=== PATIENT | female | born 1970 | race Caucasian/White ===

== ENCOUNTER 2021-06-03 07:30 | Inpatient (IN) ==
[2021-05-29 12:27] LABS: Basophils # 0.1 10*3/uL (0.0-0.2); Basophils % 0.9 % (0.0-0.8); Eosinophils # 0.3 10*3/uL (0.0-0.87); Eosinophils % 5.1 % (0.00-10.9); Hematocrit 40.7 VOL% (35.7-47.0); Hemoglobin 12.5 GM/DL (12.0-16.0); Immature Granulocytes % 0.4 %; Immature Granulocytes Absolute 0.02 #; Lymphocytes # 1.6 10*3/uL (1.4-4.0); Mean Corpuscular HGB Conc 30.7 GM/DL (32-36); Mean Corpuscular Volume 90.2 FL (87-102); Mean Platelet Volume 11.7 FL (9.6-12.0); Neutrophils % 52.6 % (38.7-73.9); Platelet Count 262 T/CUMM (130-400); Red Blood Count 4.51 MC/CUMM (3.8-5.5); Red Cell Distribution Width 16.2 % (9.3-17.3); White Blood Count 5.5 T/CUMM (4-12)
[2021-05-29 12:58] LABS: Calcium 9.2 MG/DL (8.5-10.1); Osmolality,Calculated 280.4 MOS/KG (273-304); Potassium 4.1 MMOL/L (3.5-5.1)
[2021-06-03] MEDS ORDERED: FAMOTIDINE 20 MG TABLET PO ONE (08:06)
[2021-06-03] MEDS ORDERED: ALBUTEROL 2.5 MG/3 ML NEB RESP TX ONE (08:06)
[2021-06-03] MEDS ORDERED: GABAPENTIN 400 MG CAPSULE PO ONE (08:06)
[2021-06-03] MEDS ORDERED: ACETAMINOPHEN 500 MG TABLET PO ONE (08:06)
[2021-06-03] MEDS ORDERED: DIAZEPAM 5 MG TABLET PO ONE (08:06)
[2021-06-03] MEDS ORDERED: LACTATED RINGERS 1,000 ML IV SCH (08:30)
[2021-06-03] MEDS ORDERED: propofoL 200 MG/20 ML VIAL IV ONE (13:30)
[2021-06-03] MEDS ORDERED: LIDOCAINE 2% 5 ML VIAL ONE (13:30)
[2021-06-03] MEDS ORDERED: MIDAZOLAM 2 MG/2 ML VIAL ONE (13:30)
[2021-06-03] MEDS ORDERED: fentaNYL 100 MCG/2 ML VIAL ONE (13:30)
[2021-06-03] MEDS ORDERED: SUCCINYLCHOLINE 200 MG/10 ML VIAL ONE (13:30)
[2021-06-03] MEDS ORDERED: ROCURONIUM 50 MG/5 ML VIAL IV ONE (13:30)
[2021-06-03] MEDS ORDERED: HYDROmorphone 2 MG/1 ML VIAL ONE ×2 (14:13→19:17)
[2021-06-03] MEDS ORDERED: BUPIVACAINE MPF 0.25% 30 ML VIAL ONE (16:55)
[2021-06-03] MEDS ORDERED: LIDOCAINE 1%/EPI INJ 20 ML VIAL ONE (16:55)
[2021-06-03] MEDS ORDERED: ePHEDrine 50 MG/ML VIAL ONE (17:19)
[2021-06-03] MEDS ORDERED: LACTATED RINGERS 1,000 ML IV ONE (17:39)
[2021-06-03] MEDS ORDERED: ACETAMINOPHEN INJ 1,000 MG/100 ML VIAL IV ONE (17:48)
[2021-06-03] MEDS ORDERED: ONDANSETRON 4 MG/2 ML VIAL IV PRN ×3 (17:59→19:37)
[2021-06-03] MEDS ORDERED: HYDROmorphone 2 MG/1 ML VIAL IV PRN ×3 (17:59→19:36)
[2021-06-03] MEDS ORDERED: ONDANSETRON 4 MG/2 ML VIAL ONE (18:27)
[2021-06-03] MEDS ORDERED: NEOSTIGMINE 10 MG/10 ML VIAL ONE (18:29)
[2021-06-03] MEDS ORDERED: GLYCOPYRROLATE 0.4 MG/2 ML VIAL ONE (18:29)
[2021-06-03] MEDS ORDERED: TISSUE ADHESIVE 1 EACH APPLICATOR TOP ONE (18:45)
[2021-06-03] MEDS ORDERED: SEVOFLURANE 1 UNIT/15 MINUTE INH ONE (18:50)
[2021-06-03] MEDS ORDERED: ETANERCEPT 50 MG/ML SUBCUT SCH (19:28)
[2021-06-03] MEDS ORDERED: PROMETHAZINE 25 MG/1 ML VIAL IM PRN (19:28)
[2021-06-03 20:08] LABS: Hematocrit 39.7 VOL% (35.7-47.0); Hemoglobin 12.2 GM/DL (12.0-16.0); Mean Corpuscular HGB Conc 30.7 GM/DL (32-36); Mean Corpuscular Volume 90.8 FL (87-102); Red Blood Count 4.37 MC/CUMM (3.8-5.5); Red Cell Distribution Width 16.3 % (9.3-17.3); White Blood Count 9.4 T/CUMM (4-12)
[2021-06-03 20:09] LABS: Basophils % 0.4 % (0.0-0.8); Eosinophils # 0.1 10*3/uL (0.0-0.87); Eosinophils % 0.5 % (0.00-10.9); Immature Granulocytes % 0.4 %; Immature Granulocytes Absolute 0.04 #; Lymphocytes # 1.4 10*3/uL (1.4-4.0); Lymphocytes % 15.3 % (21.3-54.2); Mean Platelet Volume 10.9 FL (9.6-12.0); Monocytes % 7.3 % (1.7-12.7); Neutrophils % 76.1 % (38.7-73.9); Platelet Count 237 T/CUMM (130-400)
[2021-06-03 20:20] LABS: Calcium 8.8 MG/DL (8.5-10.1); Osmolality,Calculated 273.8 MOS/KG (273-304); Potassium 3.7 MMOL/L (3.5-5.1)
[2021-06-03] MEDS ORDERED: SIMVASTATIN 40 MG TABLET PO SCH (21:00)
[2021-06-03] MEDS: LACTATED RINGERS 1,000 ML IV SCH (21:18)
[2021-06-03] MEDS: DULoxetine 30 MG CAPSULE PO SCH (21:23)
[2021-06-03] MEDS: PREGABALIN 100 MG CAPSULE PO SCH (21:23)
[2021-06-03] MEDS: GABAPENTIN 300 MG CAPSULE PO SCH (21:23)
[2021-06-03] MEDS ORDERED: NALOXONE 0.4 MG/ML VIAL ONE (23:40)
[2021-06-03] MEDS ORDERED: NALOXONE 0.4 MG/ML VIAL IV ONE (23:53)
[2021-06-03] MEDS: KETOROLAC 15 MG/1 ML VIAL IV SCH (23:55)
[2021-06-04] MEDS ORDERED: ALBUTEROL 2.5 MG/3 ML NEB RESP TX ONE (00:21)
[2021-06-04] MEDS: ALBUTEROL 2.5 MG/3 ML NEB RESP TX SCH ×3 (00:35→11:00)
[2021-06-04] MEDS: KETOROLAC 15 MG/1 ML VIAL IV SCH ×3 (02:20→14:41)
[2021-06-04] MEDS: LACTATED RINGERS 1,000 ML IV SCH ×2 (05:49→14:42)
[2021-06-04 07:06] LABS: Basophils % 0.3 % (0.0-0.8); Eosinophils % 0.3 % (0.00-10.9); Hematocrit 41.7 VOL% (35.7-47.0); Hemoglobin 12.7 GM/DL (12.0-16.0); Immature Granulocytes % 0.2 %; Immature Granulocytes Absolute 0.02 #; Lymphocytes # 0.8 10*3/uL (1.4-4.0); Lymphocytes % 8.1 % (21.3-54.2); Mean Corpuscular HGB Conc 30.5 GM/DL (32-36); Mean Corpuscular Volume 91.4 FL (87-102); Mean Platelet Volume 11.2 FL (9.6-12.0); Monocytes % 6.7 % (1.7-12.7); Neutrophils % 84.4 % (38.7-73.9); Platelet Count 229 T/CUMM (130-400); Red Blood Count 4.56 MC/CUMM (3.8-5.5); Red Cell Distribution Width 16.6 % (9.3-17.3); White Blood Count 9.7 T/CUMM (4-12)
[2021-06-04 07:23] LABS: Calcium 8.7 MG/DL (8.5-10.1); Osmolality,Calculated 274.8 MOS/KG (273-304); Potassium 4.3 MMOL/L (3.5-5.1)
[2021-06-04] MEDS ORDERED: INSULIN LISPRO 100 UNIT/ML SUBCUT PRN (07:31)
[2021-06-04] MEDS ORDERED: Fluticasone-Umeclidin-Vilanter [Trelegy Ellipta] 100-62.5-25 mcg INH SCH (09:00)
[2021-06-04] MEDS ORDERED: ZINC GLUCONATE 50 MG TABLET PO SCH (09:00)
[2021-06-04] MEDS ORDERED: MONTELUKAST 10 MG TABLET PO SCH (09:00)
[2021-06-04] MEDS ORDERED: ASPIRIN EC 81 MG TABLET PO SCH (09:00)
[2021-06-04] MEDS ORDERED: PANTOPRAZOLE 40 MG VIAL IV SCH (09:00)
[2021-06-04] MEDS ORDERED: FOLIC ACID 1 MG TABLET PO SCH (09:00)
[2021-06-04 11:08] VITALS: BP 132/67
[2021-06-04] MEDS ORDERED: LOPERAMIDE 2 MG CAPSULE PO PRN (12:22)
[2021-06-04] MEDS ORDERED: ENOXAPARIN 40 MG/0.4 ML SYRINGE SUBCUT SCH (13:00)
[2021-06-04] MEDS: PREGABALIN 100 MG CAPSULE PO SCH (13:02)
[2021-06-04] MEDS: DULoxetine 30 MG CAPSULE PO SCH (13:02)
[2021-06-04] MEDS: GABAPENTIN 300 MG CAPSULE PO SCH (13:03)
== END 2021-06-04 14:49 | disposition home or self-care (01) | DRG 327 ==
LOC: N.OR 07:30 → N.SDSINP 07:30 → N.3E 20:17
PROVIDERS: ADMIT Surgery; ATTEND Surgery

== ENCOUNTER 2021-06-04 22:25 | Observation (INO) ==
[2021-06-04] MEDS ORDERED: NALOXONE 0.4 MG/ML VIAL IV STA (22:53)
[2021-06-04] MEDS ORDERED: SODIUM CHLORIDE 0.9% 1,000 ML IV STA (22:53)
[2021-06-04] MEDS ORDERED: OXYBUTYNIN XL 10 MG TABLET PO STA (23:14)
[2021-06-04 23:27] LABS: ABG Base Excess 1.4 MMOL/L (-2.5-2.5); ABG HCO3 25.6 MMOL/L (20-26); ABG PCO2 62.5 MM HG (35-48); ABG PH 7.286 (7.35-7.45); ABG TCO2 26.7 MMOL/L (23-27)
[2021-06-05 00:56] LABS: Alanine Aminotransferase 110 U/L (13-56); Albumin 2.6 G/DL (3.4-5.0); Alkaline Phosphatase 328 U/L (45-117); Aspartate Amino Transferase 213 U/L (0-37); Blood Urea Nitrogen 17 MG/DL (7-18); Calcium 8.4 MG/DL (8.5-10.1); Carbon Dioxide 32 MMOL/L (21-32); Estimated Glom Filtration Rate 60 ML/MIN; Glucose 94 MG/DL (74-106); Osmolality,Calculated 276.7 MOS/KG (273-304); Potassium 4.3 MMOL/L (3.5-5.1); Sodium 138 MMOL/L (136-145); Total Protein 6.5 G/DL (6.4-8.2)
[2021-06-05 01:01] LABS: ABG HCO3 25.2 MMOL/L (20-26); ABG PCO2 63.1 MM HG (35-48); ABG PH 7.277 (7.35-7.45); ABG PO2 77.4 MM HG (80-95); ABG TCO2 26.7 MMOL/L (23-27)
[2021-06-05 01:07] LABS: Bacteria,Urine Occasional /HPF (Few); Bilirubin,Urine Negative (Negative); Blood, Urine Small mg/dL (Negative); Glucose,Urine (UA) Negative (Negative); Ketones,Urine Negative (Negative); Nitrite,Urine Negative (Negative); Protein,Urine 30 MG/DL; RBC,Urine 12 /HPF (0-4); Squamous Epithelial Cell,Urine Moderate /HPF (0-10); Transitional Epi Cells,Urine Occasional /HPF (<1); Urine Appearance CLOUDY (Clear); Urine Color Yellow (Yellow); Urine Urobilinogen < 2.0 EU/DL (0.2-1.0)
[2021-06-05 01:09] LABS: Basophils % 0.1 % (0.0-0.8); Eosinophils # 0.1 10*3/uL (0.0-0.87); Eosinophils % 0.5 % (0.00-10.9); Immature Granulocytes % 1.2 %; Immature Granulocytes Absolute 0.13 #; Lymphocytes # 0.6 10*3/uL (1.4-4.0); Mean Corpuscular HGB Conc 29.7 GM/DL (32-36); Mean Corpuscular Volume 93.3 FL (87-102); Mean Platelet Volume 11.7 FL (9.6-12.0); Monocytes % 8.9 % (1.7-12.7); NRBC # 0.03 10*3/uL; Neutrophils % 84.3 % (38.7-73.9); Platelet Count 206 T/CUMM (130-400); Red Blood Count 4.18 MC/CUMM (3.8-5.5); Red Cell Distribution Width 16.8 % (9.3-17.3)
[2021-06-05 01:10] LABS: Hemoglobin 11.6 GM/DL (12.0-16.0)
[2021-06-05 01:11] LABS: Barbiturates Screen,Urine Negative (Negative); Benzodiazepines Screen,Urine Positive (Negative); Cannabinoid Screen,Urine Negative (Negative); Opiate Screen,Urine Positive (Negative); Phencyclidine Screen,Urine Negative (Negative)
[2021-06-05] MEDS ORDERED: cefTRIAXone 1,000 MG in SODIUM CHLORIDE 0.9% 100 ML IV STA (01:19)
[2021-06-05] MEDS ORDERED: GLUCAGON 1 MG VIAL IM PRN (03:54)
[2021-06-05] MEDS ORDERED: ONDANSETRON 4 MG/2 ML VIAL IV PRN (03:56)
[2021-06-05] MEDS ORDERED: ACETAMINOPHEN 325 MG TABLET PO PRN (03:56)
[2021-06-05] MEDS ORDERED: ALBUTEROL 2.5 MG/3 ML NEB RESP TX PRN (03:56)
[2021-06-05 07:51] LABS: ABG Base Excess 2.6 MMOL/L (-2.5-2.5); ABG HCO3 26.7 MMOL/L (20-26); ABG Oxygen Saturation 92.9 % (95-100); ABG PCO2 60.5 MM HG (35-48); ABG PO2 70.8 MM HG (80-95); ABG TCO2 27.5 MMOL/L (23-27); Allen Test Positive
[2021-06-05] MEDS: DEXTROSE 50% 25 GM/50 ML VIAL IV PRN ×2 (08:18→20:47)
[2021-06-05] MEDS: ASPIRIN EC 81 MG TABLET PO SCH (08:20)
[2021-06-05] MEDS: PREGABALIN 100 MG CAPSULE PO SCH ×3 (08:20→21:20)
[2021-06-05] MEDS: ZINC GLUCONATE 50 MG TABLET PO SCH (08:21)
[2021-06-05] MEDS: NON-FORMULARY MEDICATION (Fluticasone-Umeclidin-Vilanter [Trelegy Ellipta] 100-62.5-25 mcg INH SCH (08:21)
[2021-06-05] MEDS: LOSARTAN 50 MG TABLET PO SCH (08:21)
[2021-06-05] MEDS: FOLIC ACID 1 MG TABLET PO SCH (08:21)
[2021-06-05] MEDS: MONTELUKAST 10 MG TABLET PO SCH (08:21)
[2021-06-05] MEDS: GABAPENTIN 300 MG CAPSULE PO SCH ×3 (08:21→21:20)
[2021-06-05] MEDS: DOCUSATE SODIUM 100 MG CAPSULE PO SCH ×2 (08:21→21:21)
[2021-06-05] MEDS: PANTOPRAZOLE 40 MG TABLET PO SCH ×2 (08:21→21:20)
[2021-06-05] MEDS ORDERED: NON-FORMULARY MEDICATION (Etanercept [Enbrel] 50 mg/mL (1 mL) Syringe) SUBCUT SCH (10:00)
[2021-06-05] MEDS ORDERED: SIMVASTATIN 40 MG TABLET PO SCH (21:00)
[2021-06-05] MEDS: DULoxetine 30 MG CAPSULE PO SCH (21:20)
[2021-06-06] MEDS ORDERED: cefTRIAXone 1,000 MG in SODIUM CHLORIDE 0.9% 100 ML IV SCH (01:00)
[2021-06-06 04:32] LABS: Basophils % 0.3 % (0.0-0.8); Eosinophils # 0.5 10*3/uL (0.0-0.87); Eosinophils % 7.3 % (0.00-10.9); Hematocrit 39.1 VOL% (35.7-47.0); Hemoglobin 11.9 GM/DL (12.0-16.0); Immature Granulocytes % 0.6 %; Immature Granulocytes Absolute 0.04 #; Lymphocytes # 1.3 10*3/uL (1.4-4.0); Lymphocytes % 19.9 % (21.3-54.2); Mean Corpuscular HGB Conc 30.4 GM/DL (32-36); Mean Corpuscular Volume 92.4 FL (87-102); Monocytes % 10.9 % (1.7-12.7); Platelet Count 177 T/CUMM (130-400); Red Blood Count 4.23 MC/CUMM (3.8-5.5); Red Cell Distribution Width 16.8 % (9.3-17.3); White Blood Count 6.6 T/CUMM (4-12)
[2021-06-06 05:09] LABS: Calcium 8.5 MG/DL (8.5-10.1); Osmolality,Calculated 277.5 MOS/KG (273-304); Potassium 4.2 MMOL/L (3.5-5.1)
[2021-06-06 08:17] VITALS: BP 138/88
[2021-06-06] MEDS ORDERED: CLOPIDOGREL 75 MG TABLET PO SCH (09:00)
[2021-06-06] MEDS: LOSARTAN 50 MG TABLET PO SCH (09:21)
[2021-06-06] MEDS: DULoxetine 30 MG CAPSULE PO SCH (09:22)
[2021-06-06] MEDS: PANTOPRAZOLE 40 MG TABLET PO SCH (09:22)
[2021-06-06] MEDS: MONTELUKAST 10 MG TABLET PO SCH (09:22)
[2021-06-06] MEDS: ZINC GLUCONATE 50 MG TABLET PO SCH (09:22)
[2021-06-06] MEDS: ASPIRIN EC 81 MG TABLET PO SCH (09:23)
[2021-06-06] MEDS: FOLIC ACID 1 MG TABLET PO SCH (09:23)
[2021-06-06] MEDS: PREGABALIN 100 MG CAPSULE PO SCH (09:23)
[2021-06-06] MEDS: DOCUSATE SODIUM 100 MG CAPSULE PO SCH (09:24)
[2021-06-06] MEDS: GABAPENTIN 300 MG CAPSULE PO SCH (09:27)
[2021-06-06] MEDS: METOPROLOL SUCCINATE XL 25 MG TABLET PO SCH ×2 (09:38→09:40)
[2021-06-06] MEDS: NON-FORMULARY MEDICATION (Fluticasone-Umeclidin-Vilanter [Trelegy Ellipta] 100-62.5-25 mcg INH SCH (11:55)
[2021-06-06] MEDS ORDERED: ROSUVASTATIN 20 MG TABLET PO SCH (21:00)
[2021-06-07] MEDS ORDERED: METHOTREXATE 2.5 MG TABLET PO SCH (09:00)
== END 2021-06-06 11:40 | disposition home or self-care (01) ==
LOC: EDUNIT# → EDBD → N.ED 22:25 → N.TELES 22:25
PROVIDERS: ADMIT Hospitalist; ATTEND Hospitalist